=== PATIENT | female | born 1965 ===

== ENCOUNTER 2020-05-06 18:09 | Emergency (ER) | payer OTHER, MEDICAID, SELFPAY ==
[2020-05-06 18:12] VITALS: BP 170/71; PULSE 70; RESP 18; TEMP 36.2; O2SAT 99; BMI 22.0
[2020-05-06 19:01] LABS: RBC Urine 1-5/HPF (0-5/HPF); Squamous Epithelial Cell Urine 1-5 /HPF (0-5/HPF); WBC Urine 0-1/HPF (0-5/HPF)
[2020-05-06 19:02] LABS: Amorphous Sediment Urine 1+; Bacteria Urine Moderate (10-30); Culture Indicated Urine Specimen Cultured
[2020-05-06] MEDS: SODIUM CHLORIDE 0.9% 1,000 ML 1000 ML IV (19:38)
--- NOTE | 2020-05-06 19:40 | DI.CT.S_ITS ---
PROCEDURE: CT KIDNEY URETER BLADDER (KUB) INDICATIONS: severe flank pain, hematuria, left pain TECHNIQUE: Noncontrast 5 mm thick sections acquired from the diaphragms to the symphysis. 5 mm thick coronal and sagittal reformats were then performed. For radiation dose reduction, the following was used: automated exposure control, adjustment of mA and/or kV according to patient size. COMPARISON: [facility], [place], PELVIC COMPLETE, 12/12/2015, 16:31. FINDINGS: Image quality: Excellent. Lung bases: Lung bases are clear. Heart size is normal. Urinary system: Both kidneys are normal in size. Nonobstructing 7 mm right interpolar renal calculus. Cortical calcification within the left interpolar kidney posteriorly measuring 7 mm. Nonobstructing 2 mm calcification within the inferior pole left kidney. No hydronephrosis or perinephric fat stranding. Both ureters appear non-dilated throughout their expected courses. 3 mm diameter nonobstructing distal left ureteral calculus. Urinary bladder is decompressed. Other solid organs: Liver is normal in size. Multiple hepatic cysts are present. Gallbladder is surgically absent . Pancreas is normal in contours. Spleen is normal in size. No adrenal nodules. Peritoneum and bowel: Small hiatal hernia. Unenhanced bowel loops demonstrate normal wall thickness and caliber. No free fluid or air. Appendix not seen. No evidence of appendicitis. Nodes and vessels: No retroperitoneal or mesenteric adenopathy by size criteria. Aorta and inferior vena cava are normal in caliber. Abdominal wall: No ventral hernias. Pelvis: No free pelvic fluid. No inguinal hernias or adenopathy. Exophytic 63 mm diameter mass protrudes posteriorly from the uterus, consistent with a fibroid. Bones: No suspicious bony lesions. No vertebral body compression fractures. IMPRESSION: 1. Nonobstructing distal left ureteral calculus. 2. Nonobstructing bilateral renal calcifications. 3. Small hiatal hernia. 4. Probable uterine fibroid. Confirmation with nonemergent outpatient follow-up ultrasound examination is recommended. 5. Appendix is not seen. No evidence of appendicitis. Dictated by: Tara Campos M.D. on 05/06/2020 at 19:56 Approved by: Tara Campos M.D. on 05/06/2020 at 20:00
[2020-05-06 19:41] LABS: Add Manual Diff / Slide Review NO; Basophils Absolute Auto 0 /uL (0-100); Basophils Percent Auto 0.6 % (0-2); Eosinophils Absolute Auto 100 /uL (0-450); Eosinophils Percent Auto 1.2 % (2-4); Hematocrit 40.8 % (36-46); Hemoglobin 13.5 g/dL (12.0-16.0); Lymphocytes Absolute Auto 2000 /uL (1100-4500); Lymphocytes Percent Auto 25.7 % (25-40); Mean Corpuscular HGB Conc 33.1 % (30-36); Mean Corpuscular Hemoglobin 31.7 PG (26-34); Mean Corpuscular Volume 95.6 fL (80-100); Monocytes Absolute Auto 500 /uL (0-900); Monocytes Percent Auto 6.8 % (3-14); Neutrophils Absolute Auto 5200 /uL (1500-7000); Neutrophils Percent Auto 65.7 % (50-75); Platelet Count 272 X10^3/uL (150-400); Red Blood Cell Count 4.27 X10^6/uL (4.0-5.2); Red Cell Distribution Width 13.7 % (11.6-14.8); White Blood Cell Count 7.9 X10^3/uL (4.5-11.0)
[2020-05-06 19:47] LABS: Prothrombin Time 12.1 SECONDS (10.1-12.7)
[2020-05-06] MEDS: LIDOCAINE 2% IV (19:49)
[2020-05-06] MEDS: SODIUM CHLORIDE 0.9% IV (19:49)
[2020-05-06 19:50] LABS: PTT Partial Thromboplastin Tim 26 SECONDS (26.4-36.2)
[2020-05-06 19:53] LABS: Alanine Aminotransferase 15 IU/L (<35); Albumin 4.7 g/dL (3.5-5.0); Albumin Globulin Ratio 1.4 (1.0-2.8); Alkaline Phosphatase 33 U/L (38-126); Aspartate Aminotransferase 27 IU/L (14-36); BUN Creatinine Ratio 31.1 (6-22); Bilirubin Total 0.4 mg/dL (0.2-1.3); Blood Urea Nitrogen 14 mg/dL (7-17); Calcium 9.9 mg/dL (8.4-10.2); Carbon Dioxide 29 mmol/L (22-32); Chloride 105 mmol/L (98-107); Estimated Glomerular Filt Rate > 60.0 mL/min (>60); Globulin 3.3 g/dL (1.7-4.1); Glucose 120 mg/dL (70-100); HEMOLYSIS 48 (0-50); Lipase 191 U/L (23-300); Sodium 139 mmol/L (137-145)
--- NOTE | 2020-05-06 20:30 | ED_ITS ---
HPI - Abdominal Pain General Chief Complaint: Abdominal Pain Stated Complaint: LEFT SIDE OVERY PAIN AREA FEELING PEE OFTEN Time Seen by Provider: 05/06/20 18:35 Source: patient Mode of arrival: Ambulatory Limitations: no limitations History of Present Illness HPI narrative: 54F nonsmoker with history of ovarian cysts presents with the chief complaint of a day or two of severe left flank pain with radiation into he r groin. She states it came on suddenly and she denies any provocation or palliation. She states it radiates around her flank and into her groin. She states that she has no pain with urination but has been urinating frequently. She denies fever or chills. She is not dizzy nor weak or lightheaded. She states that she has taken little at home to help with her symptoms as she has allergies to the NSAIDs and any opioids. MD complaint: flank pain Onset (ago): day(s) Pain Consistency: intermittent Location: L flank Severity: severe Quality: stabbing and sharp Radiation: L flank Relieving factors: nothing Exacerbating factors: nothing Associated symptoms: nausea Related Data Patient : No Previous Rx's Medication Instructions Recorded azithromycin [Zithromax] 1 - 2 tab OR Q DAY #1 packet 10/18/16 ondansetron 4 mg PO TID-QID PRN #10 tab 05/06/20 tamsulosin [Flomax] 0.4 mg PO DAILY #10 cap 05/06/20 Allergies Allergy/AdvReac Type Severity Reaction Status Date / Time aspirin [ASPIRIN] Allergy Unknown Verified 05/06/20 20:23 cimetidine [CIMETIDINE] Allergy Unknown Verified 05/06/20 20:23 famotidine [FAMOTIDINE] Allergy Unknown Verified 05/06/20 20:23 hydrocodone [HYDROCODONE] Allergy Unknown Verified 05/06/20 20:23 ibuprofen [IBUPROFEN] Allergy Unknown Verified 05/06/20 20:23 peanut [PEANUT] Allergy Unknown Verified 05/06/20 20:23 shellfish derived Allergy Unknown Verified 05/06/20 20:23 IODINE CONTRAST Allergy Unknown Uncoded 10/09/17 12:06 Review of Systems Constitutional Constitutional: Denies chills, Denies fatigue, Denies fever(s), Denies frequent falls, Denies lethargy and Denies weakness Eyes Eyes: Denies change in vision, Denies eye discharge, Denies irritation and Denies loss of vision ENT Ears, Nose, Mouth, and Throat: Denies change in voice, Denies dizziness, Denies neck pain, Denies sore throat and Denies throat swelling Cardiovascular Cardiovascular: Denies chest pain, Denies irregular heart rhythm, Denies lightheadedness, Denies palpitations, Denies dyspnea, Denies dyspnea on exertion and Denies orthopnea Respiratory Respiratory: Denies cough, Denies dyspnea, Denies dyspnea on exertion and Denies wheezing Gastrointestinal Gastrointestinal: Reports abdominal pain, Denies change in bowel habits, Denies diarrhea, Denies nausea and Denies vomiting Genitourinary Genitourinary: Reports flank pain and Reports urinary urgency Genitourinary: Reports flank pain and Reports urinary urgency Musculoskeletal Musculoskeletal: Denies neck pain and Denies numbness Integumentary/Breasts Skin/Breast: Denies pruritus, Denies erythema, Denies rash and Denies wounds Neurologic Neurologic: Denies behavioral changes, Denies confusion, Denies dizziness, De nies frequent falls, Denies loss of vision, Denies numbness and Denies weakness Psychiatric Psychiatric: Denies anxiety, Denies behavioral changes, Denies confusion, Denies depression, Denies homicidal ideation and Denies suicidal ideation Endocrine Endocrine: Denies fatigue, Denies flushing and Denies palpitations Hematologic/Lymphatic Hematologic/Lymphatic: Denies easy bruising Allergic/Immunologic Allergic/Immunologic: Denies urticaria, Denies throat swelling and Denies wheezing Patient History Surgical History (Updated 10/29/17 @ 05:43 by Melva Marcelo MD) Status post cholecystectomy Status post ovarian cystectomy Family History (Updated 01/30/16 @ 00:00 by Melva Marcelo MD) Father Depression Cerebrovascular accident (CVA), unspecified mechanism Social History Smoking Status: Never smoker Smoking Status: Never smoker alcohol intake frequency: 0-2 drinks per day Substance Use Type: does not use Exam Narrative Exam Narrative: GENERAL: [54] year old patient appears stated age. Well- nourished, well-developed patient, in mild distress. HEAD: Atraumatic. Normocephalic. EYES: Pupils equal round and reactive. Extraocular motions intact. No scleral icterus. No injection or drainage. ENT: Nose without bleeding, purulent drainage. Throat without erythema, tonsillar hypertrophy or exudate. Airway patent. NECK: Trachea midline. Non tender CARDIOVASCULAR: Regular rate and rhythm without murmurs, gallops, or rubs. RESPIRATORY: Clear to auscultation. Breath sounds equal bilaterally. No wheezes, rales, or rhonchi. GASTROINTESTINAL: Abdomen soft, non-tender, nondistended. EXTREMITIES: No edema or joint tenderness. BACK: Nontender without deformity or crepitance. No flank tenderness. NEURO: AOx3. SKIN: No rash or erythema of visible areas Initial Vital Signs Initial Vital Signs: Vital Signs Temperature 97.1 F L 05/06/20 18:12 Pulse Rate 70 05/06/20 18:12 Respiratory Rate 18 05/06/20 18:12 Blood Pressure 170/71 H 05/06/20 18:12 Pulse Oximetry 99 05/06/20 18:12 Course Orders Ordered: Discontinued Medications Sodium Chloride (Normal Saline 0.9%) 1,000 mls @ 1,000 mls/hr IV BOLUS ONE Stop: 05/06/20 20:27 Last Infusion: 05/06/20 20:23 Dose: 0 mls/hr Documented by: Admin: 05/06/20 19:38 Dose: 1,000 mls/hr Documented by: RAMAKRISHNA Sodium Chloride (Normal Saline 0.9%) 1,000 mls @ 1,000 mls/hr IV BOLUS ONE Stop: 05/06/20 20:39 Last Admin: 05/06/20 19:49 Dose: Not Given Documented by: RAMAKRISHNA Lidocaine HCl 4.9 ml/ Sodium (Chloride) 54.9 mls @ 329.4 mls/hr IV NOW ONE Stop: 05/06/20 19:42 Last Infusion: 05/06/20 20:23 Dose: 0 mls/hr Documented by: Admin: 05/06/20 19:49 Dose: 329.4 mls/hr Documented by: RAMAKRISHNA Vital Signs Vital signs: Vital Signs - 8 hr 05/06/20 18:12 Temperature 97.1 F L Pulse Rate 70 Respiratory Rate 18 Blood Pressure 170/71 H Pulse Oximetry 99 MDM - Abdominal Pain Lab Data Result diagrams: 05/06/20 19:35 05/06/20 19:35 Labs: Lab Results 05/06/20 05/06/20 05/06/20 Range/Units 18:35 19:35 19:35 WBC 7.9 (4.5-11.0) X10^3/uL RBC 4.27 (4.0-5.2) X10^6/uL Hgb 13.5 (12.0-16.0) g/dL Hct 40.8 (36-46) % MCV 95.6 (80-100) fL MCH 31.7 (26-34) PG MCHC 33.1 (30-36) % RDW 13.7 (11.6-14.8) % Plt Count 272 (150-400) X10^3/uL Neut % (Auto) 65.7 (50-75) % Lymph % (Auto) 25.7 (25-40) % [place] % (Auto) 6.8 (3-14) % Eos % (Auto) 1.2 L (2-4) % Baso % (Auto) 0.6 (0-2) % Neut # (Auto) 5200 (7947-8576) /uL Lymph # (Auto) 2000 (0255-5779) /uL [place] # (Auto) 500 (0-900) /uL Eos # (Auto) 100 (0-450) /uL Baso # (Auto) 0 (0-100) /uL PT 12.1 (10.1-12.7) SECONDS INR 1.0 (0.9-1.3) APTT 26 L (26.4-36.2) SECONDS Sodium (137-145) mmol/L Potassium (3.4-5.1) mmol/L Chloride (98-107) mmol/L Carbon Dioxide (22-32) mmol/L BUN (7-17) mg/dL Creatinine (0.52-1.04) mg/dL Estimated GFR (>60) mL/min BUN/Creatinine Ratio (6-22) Glucose (70-100) mg/dL Calcium (8.4-10.2) mg/dL Total Bilirubin (0.2-1.3) mg/dL AST (14-36) IU/L ALT (<35) IU/L Alkaline Phosphatase (38-126) U/L Total Protein (6.3-8.2) g/dL Albumin (3.5-5.0) g/dL Globulin (1.7-4.1) g/dL Albumin/Globulin Ratio (1.0-2.8) Lipase (23-300) U/L Urine RBC 1-5/hpf (0-5/HPF) Urine WBC 0-1/hpf (0-5/HPF) Ur Squamous Epith Cells 1-5 /hpf (0-5/HPF) Amorphous Sediment 1+ Urine Bacteria Moderate (10-30) H (None) Ur Culture Indicated? Specimen cultured 05/06/20 Range/Units 19:35 WBC (4.5-11.0) X10^3/uL RBC (4.0-5.2) X10^6/uL Hgb (12.0-16.0) g/dL Hct (36-46) % MCV (80-100) fL MCH (26-34) PG MCHC (30-36) % RDW (11.6-14.8) % Plt Count (150-400) X10^3/uL Neut % (Auto) (50-75) % Lymph % (Auto) (25-40) % [place] % (Auto) (3-14) % Eos % (Auto) (2-4) % Baso % (Auto) (0-2) % Neut # (Auto) (2269-8290) /uL Lymph # (Auto) (3712-9335) /uL [place] # (Auto) (0-900) /uL Eos # (Auto) (0-450) /uL Baso # (Auto) (0-100) /uL PT (10.1-12.7) SECONDS INR (0.9-1.3) APTT (26.4-36.2) SECONDS Sodium 139 (137-145) mmol/L Potassium 4.0 (3.4-5.1) mmol/L Chloride 105 (98-107) mmol/L Carbon Dioxide 29 (22-32) mmol/L BUN 14 (7-17) mg/dL Creatinine 0.45 L (0.52-1.04) mg/dL Estimated GFR > 60.0 (>60) mL/min BUN/Creatinine Ratio 31.1 H (6-22) Glucose 120 H (70-100) mg/dL Calcium 9.9 (8.4-10.2) mg/dL Total Bilirubin 0.4 (0.2-1.3) mg/dL AST 27 (14-36) IU/L ALT 15 (<35) IU/L Alkaline Phosphatase 33 L (38-126) U/L Total Protein 8.0 (6.3-8.2) g/dL Albumin 4.7 (3.5-5.0) g/dL Globulin 3.3 (1.7-4.1) g/dL Albumin/Globulin Ratio 1.4 (1.0-2.8) Lipase 191 (23-300) U/L Urine RBC (0-5/HPF) Urine WBC (0-5/HPF) Ur Squamous Epith Cells (0-5/HPF) Amorphous Sediment Urine Bacteria (None) Ur Culture Indicated? Point of care testing: Urine Dip Bedside Urine Glucose Negative Bedside Urine Bilirubin + 1 Bedside Urine Ketone + 15 Urine Specific [place] 1.030 Bedside Urine Occult Blood +/- Bedside Urine pH 6.0 Bedside Urine Protein - Negative Bedside Urine Urobilinogen - Negative Bedside Urine Nitrite - Negative Bedside Urine Leukocytes - Negative Esterase Imaging Data CT scan - abdomen/pelvis: Radiologist's Impression: Chart Viewer Diagnostics DATE TYPE STATUS REF RANGE/AUTHOR Hx 05/06/20 19:40 Tara Campos Kamla Childs 54, [id number] [facility], Main ED 172.72cm 65.771kg BMI: 22.0kg/m? VIP Abdominal Pain Search Chart No Data to Display ONSET 05/06/20 20:46 AmadeoKamla A 54 F 1965 [place] [address] CT Scan Report Signed Patient: Kamla Childs AMR#: [id number] : 1965Acct:[id number] Age/Sex: 54 / FDate of Service: 05/06/20 Loc: ED Accession Number: [id number] Procedure: CT kidney ureter bladder (KUB) Ordering Provider: Marques Viveros D.O. PROCEDURE: CT KIDNEY URETER BLADDER (KUB) INDICATIONS: severe flank pain, hematuria, left pain TECHNIQUE: Noncontrast 5 mm thick sections acquired from the diaphragms to the symphysis. 5 mm thick coronal and sagittal reformats were then performed. For radiation dose reduction, the following was used: automated exposure control, adjustment of mA and/or kV according to patient size. COMPARISON: [facility], [place], PELVIC COMPLETE, 12/12/2015, 16:31. FINDINGS: Image quality: Excellent. Lung bases: Lung bases are clear. Heart size is normal. Urinary system: Both kidneys are normal in size. Nonobstructing 7 mm right in terpolar renal calculus. Cortical calcification within the left interpolar kidney posteriorly measuring 7 mm. Nonobstructing 2 mm calcification within the inferior pole left kidney. No hydronephrosis or perinephric fat stranding. Both ureters appear non-dilated throughout their expected courses. 3 mm diameter nonobstructing distal left ureteral calculus. Urinary bladder is decompressed. Other solid organs: Liver is normal in size. Multiple hepatic cysts are present. Gallbladder is surgically absent . Pancreas is normal in contours. Spleen is normal in size. No adrenal nodules. Peritoneum and bowel: Small hiatal hernia. Unenhanced bowel loops demonstrate normal wall thickness and caliber. No free fluid or air. Appendix not seen. No evidence of appendicitis. Nodes and vessels: No retroperitoneal or mesenteric adenopathy by size criteria. Aorta and inferior vena cava are normal in caliber. Abdominal wall: No ventral hernias. Pelvis: No free pelvic fluid. No inguinal hernias or adenopathy. Exophytic 63 mm diameter mass protrudes posteriorly from the uterus, consistent with a fibroid. Bones: No suspicious bony lesions. No vertebral body compression fractures. IMPRESSION: 1. Nonobstructing distal left ureteral calculus. 2. Nonobstructing bilateral renal calcifications. 3. Small hiatal hernia. 4. Probable uterine fibroid. Confirmation with nonemergent outpatient follow-up ultrasound examination is recommended. 5. Appendix is not seen. No evidence of appendicitis. Dictated by: Tara Campos M.D. on 05/06/2020 at 19:56 Approved by: Tara Campos M.D. on 05/06/2020 at 20:00 Discharge Plan Departure Patient Disposition: Home Clinical Impression: Calculus of kidney Discharge Date/Time: 05/06/20 21:12 Instructions: DI for Kidney Stones Activity Restrictions/Additional Instructions: *You have been diagnosed with [small kidney stone, very likely to pass on its own] *What to do: *Take medications as directed *Follow up with your primary care provider in 2-3 days, call for an appointment. Let them know you were seen in the Emergency Department and that we ask that you be seen in follow up. You may also follow up with urology for follow up, I have included contact info for Dr. Gonzalez. *Return to ER if you should have any new, worsening or concerning symptoms, such as [increasing pain, fever, chills, persistent vomiting or other bothersome symptoms] Prescriptions: New tamsulosin [Flomax] 0.4 mg capsule 0.4 mg PO DAILY Qty: 10 RF: 0 ondansetron 4 mg tablet,disintegrating 4 mg PO TID-QID PRN (Reason: nausea and vomiting) Qty: 10 RF: 0 No Action azithromycin [Zithromax] 250 MG tablet 1 - 2 tab OR Q DAY Qty: 1 RF: 0 Referrals: Sanjuanita Gonzalez MD [Physician] -
[2020-05-06 20:46] VITALS: BP 154/78; PULSE 81; RESP 18; O2SAT 99
== END 2020-05-06 21:12 | disposition home or self-care (01) ==
PROVIDERS: Emergency Provider Emergency Medicine
DX: N20.0 Calculus of kidney (principal); R11.0 Nausea; R31.9 Hematuria, unspecified
CPT/HCPCS: 36415; 74176; 80053; 81003; 81015; 83690; 85025; 85610; 85730; 87086; 96365; 99284

== ENCOUNTER → 2020-07-07 10:27 | Outpatient (CLI) | payer OTHER, MEDICAID, SELFPAY ==
--- NOTE | 2020-07-07 | DI.US.S_ITS ---
PROCEDURE: US PELVIC COMPLETE INDICATIONS: F/U Uterine fibriod seen on CT 05/06/20 TECHNIQUE: Real-time scanning was performed of the pelvic organs, with image documentation. Additional endovaginal scanning was necessary due to incomplete visualization of the adnexal and endometrial structures by transabdominal scanning. COMPARISON: [facility], CT, CT KIDNEY URETER BLADDER (KUB), 05/06/2020, 19:44. [facility], [place], PELVIC COMPLETE, 12/12/2015, 16:31. FINDINGS: Transabdominal scanning: Limited scanning through the kidneys shows no hydronephrosis. No pathologic free abdominal or pelvic fluid. Endovaginal scanning: Uterus: Uterus is top-normal in size at 9.8 x 5.6 x 6.0 cm. The endometrium measures 10 mm in combined thickness. Uterine fibroid with pedunculated appearance involving the midline posterior region measuring 6.7 x 5.8 x 5.4 cm. Ovaries: Right ovary measures 3.2 x 2.0 x 1.3 cm. Left ovary measures 3.5 x 1.9 x 2.1 cm. Doppler interrogation demonstrates normal waveforms in both ovaries. IMPRESSION: Presumed large posterior uterine fibroid. Surveillance with ultrasound to document long-term stability could be performed as clinically indicated. Dictated by: Claudy Man M.D. on 07/07/2020 at 12:23 Approved by: Claudy Man M.D. on 07/07/2020 at 12:26
== END ==
PROVIDERS: PCP Family Medicine; Referring Provider Physician Assistant; Visit Provider Physician Assistant
DX: R93.89 Abnormal findings on diagnostic imaging of other specified body structures (principal); D25.9 Leiomyoma of uterus, unspecified; N20.1 Calculus of ureter; Z84.1 Family history of disorders of kidney and ureter
CPT/HCPCS: 76830; 76856; 81002; 99214

== ENCOUNTER → 2020-07-18 10:27 | Outpatient (CLI) | payer OTHER, MEDICAID, SELFPAY ==
--- NOTE | 2020-07-18 10:28 | DI.RAD.S_ITS ---
PROCEDURE: XR KUB INDICATIONS: Kidney stone TECHNIQUE: One view of the abdomen acquired. COMPARISON: [facility], CT, CT KIDNEY URETER BLADDER (KUB), 05/06/2020, 19:44. FINDINGS: Surgical changes and devices: Surgical clips right upper quadrant and right mid abdomen. Bowel: Bowel gas pattern is normal. Soft tissues: No new suspicious abdominal calcifications. Visualized solid organ contours appear normal in size. A calcification within the mid collecting system of the right kidney is partially overlapping the medial border of cholecystectomy clips at the right upper quadrant. It can be seen, however and was easily visualized by CT scanning 05/06/20. A minute calculus within the lower 3rd collecting system of the left kidney cannot be seen. A distal left ureteral stone cannot be clearly visualized at the pelvis.. Bones: No suspicious bony lesions. IMPRESSION: The right upper quadrant nonobstructive right renal collecting system calculus is partially obscured by right upper quadrant cholecystectomy clips but can be seen. The 2 left-sided urinary tract stones cannot be visualized by current plain film imaging. Dictated by: Trevor Braga M.D. on 07/18/2020 at 11:13 Approved by: Trevor Braga M.D. on 07/18/2020 at 11:17
[2020-07-18 12:03] LABS: Calcium 9.4 mg/dL (8.4-10.2); Uric Acid 2.9 mg/dL (2.5-6.2)
[2020-07-19 07:36] LABS: Parathyroid Hormone Int 58 pg/mL (15-65)
== END ==
PROVIDERS: PCP Family Medicine; Referring Provider Specialist; Visit Provider Specialist
DX: N20.0 Calculus of kidney (principal)
CPT/HCPCS: 36415; 74018; 82310; 83970; 84550

== ENCOUNTER → 2020-09-16 10:45 | Outpatient (CLI) | payer OTHER, MEDICAID, SELFPAY ==
[2020-09-16] MEDS: COVID-19 VACC #1, MRNA(MOD) 100 MCG/0.5 ML VIAL IM (10:52)
== END ==
PROVIDERS: PCP Family Medicine; Visit Provider Internal Medicine
DX: Z23 Encounter for immunization (principal)
CPT/HCPCS: 0011A; 91301

== ENCOUNTER 2020-10-07 06:09 | Day surgery (SDC) | payer OTHER, MEDICAID, SELFPAY ==
[2020-10-07] VITALS (8 sets, daily range): BP systolic 119–136; BP diastolic 76–87; PULSE 69–104; RESP 8–16; TEMP 36.2–36.9; O2SAT 97–99; BMI 22.8
[2020-10-07] MEDS: LACTATED RINGERS 1,000 ML 42 ML IV (06:54)
[2020-10-07 07:11] LABS: COVID19 -Nasal RAPID Negative (Negative)
[2020-10-07] MEDS: SCOPOLAMINE 1 PATCH TOP (07:24)
[2020-10-07] MEDS: ACETAMINOPHEN 325 MG TABLET 975 MG PO (07:25)
--- NOTE | 2020-10-07 07:35 | PM.HP.1 ---
History of Present Illness History of Present Illness Date Patient Seen: 10/07/20 Time Patient Seen: 07:35 Chief complaint: SDC Narrative: Mildly is a 54-year-old white female presenting today for scheduled right lithotripsy for 6 mm right upper pole renal calculus. She has diagnosis of bilateral nephrolithiasis about 2019. She recently passed a 3 mm calculus. Metabolic stone risk evaluation identified suboptimal urine production and hypocitraturia as underlying risk factors for stone formation. Her sister also has a history of nephrolithiasis. Patient History Medical History Bilateral nephrolithiasis (~2019) Chicken pox (~1974) Family history of nephrolithiasis Fibroids (~2019) Vertigo (~2012) Surgical History Anesthesia History of (~04/21/07) History of oral surgery History of removal of skin mole Status post cholecystectomy (~2011) Status post ovarian cystectomy Family & Social History Family History Father Depression Cerebrovascular accident (CVA), unspecified mechanism Kidney stones Mother Kidney stones Social History: household members spouse Tobacco & Substance use: Smoking Status Never smoker alcohol intake current alcohol intake frequency a few times a week Substance Use Type does not use Meds Home Medications and Allergies Home Medications Medication Instructions Recorded Confirmed Type cholecalciferol (vitamin D3) 125 125 mcg PO DAILY 06/29/20 10/07/20 History mcg (5,000 unit) capsule potassium citrate 10 mEq (1,080 10 meq PO TID #270 tab 09/05/20 10/07/20 Rx mg) tablet,extended release Allergies Allergy/AdvReac Type Severity Reaction Status Date / Time cimetidine [CIMETIDINE] Allergy Intermediate Gastrointestinal Verified 10/07/20 06:57 Upset diphenhydramine Allergy Intermediate Swelling Verified 10/07/20 06:57 [From Benadryl] of Lip/Tongue/Throat famotidine [FAMOTIDINE] Allergy Intermediate Verified 10/07/20 06:57 hydrocodone [HYDROCODONE] Allergy Intermediate Hives Verified 10/07/20 06:57 ibuprofen [IBUPROFEN] Allergy Intermediate Hives Verified 10/07/20 06:57 IODINE CONTRAST Allergy Unknown Uncoded 10/03/20 13:14 Exam Vital Signs (past 8 hours): - 10/07/20 07:03 Temperature 98.5 F Pulse Rate 83 Respiratory Rate 14 Blood Pressure 125/87 Pulse Oximetry 98 Oxygen Delivery Method Room Air Narrative Exam Narrative: She is a well-developed and nourished middle-aged female in no acute distress. Head/neck-sclera clear and pupils are equal round bilaterally. Chest-clear, equal, unlabored expansion bilaterally. Heart-regular rhythm in regular rate. No abnormal heart tones appreciated. Objective Labs Labs: Laboratory Results - last 24 hr 10/07/20 06:39 SARS-CoV-2 (PCR) Negative Assessment & Plan Assessment & Plan narrative: Assessment: 1. 6 mm right upper pole renal calculus. 2. History recurrent nephrolithiasis. Plan: 1. Discussion informed consent obtained today for RIGHT EXTRACORPOREAL SHOCKWAVE LITHOTRIPSY..
--- NOTE | 2020-10-07 07:38 | PM.PREOP ---
Pre-operative Note Interval Note History & Physical reviewed/Exam performed by Physician: Yes Changes to H&P: No
--- NOTE | 2020-10-07 08:04 | SUR.OPER ---
Supine on lithotriptor bed, head on pillow, arms on gel pads at side, legs uncrossed, gel pad to back of knees and heels, lower legs on padded triangle.
--- NOTE | 2020-10-07 08:20 | PM.OP.1 ---
Operative Date/Time/Diagnoses Date of procedure: 10/07/20 Time of procedure: 08:20 Pre-op diagnosis: 1. 6 mm right renal calculus. 2. History recurrent calcium nephrolithiasis. Post-op diagnosis: same Procedure & Clinicians Procedure: Right extracorporeal shockwave lithotripsy (maximal power level 6.5 x 1000 shocks) Same procedure as scheduled: Yes Indications: 1. 6 mm right renal calculus. 2. History recurrent nephrolithiasis. Surgeon: Sanjuanita Gonzalez Click Yes if Unassisted: Yes Anesthesia Type: General Operative Notes Findings: 6 mm index calculus located expected position compared to preoperative imaging. Closure Type: not applicable Specimen(s): none sent Estimated Blood Loss (mL): 0 Blood products transfused: none Procedure in detail: Patient was positioned supine was administered general anesthesia. The above-described stone was then localized xy and Z plane. Lithotripsy was then commenced at minimal power level for 200 shocks. A 2 minutes pause was then conducted. Lithotripsy was then resumed and the power level was gradually increased to maximal of 6.5 the stone and its fragments were really localize numerous times throughout the case and adjustments made as indicated. At 1000 shocks there was excellent radiographic evidence of stone comminution. Treatment was halted. Patient was then awakened, transferred to [place], and transferred to PACU. Complications: none Post-operative Condition: stable Disposition: PACU Plan for aftercare: Discharge home
--- NOTE | 2020-10-07 08:47 | SUR.PHASEI ---
Pt arrived to PACU with patent airway, awoke w/o difficulty and turned to left side per Dr. Gonzalez's instructions.
--- NOTE | 2020-10-07 08:50 | SUR.PHASEI ---
Verified with Dr. Gonzalez about no lasix order.
--- NOTE | 2020-10-07 11:32 | SUR.PHASEII ---
Late entry: Pt up to void, steady when up, urine stained, stones sent to lab. Pt ready to go, called, d/c instructions discussed aware of meds at pharmacy. Pt left when ready and in stable condition.
[2020-10-17 12:54] LABS: Stone Analysis Source NOT PROVIDED
== END 2020-10-07 10:10 | disposition home or self-care (01) ==
PROVIDERS: PCP Family Medicine; Referring Provider Family Medicine; Visit Provider Specialist
PROC: (CPT 50590; principal; 2020-10-07 07:45)
DX: N20.0 Calculus of kidney (principal)
CPT/HCPCS: 50590; 82365; 87635; J1100; J2250; J2405; J2704

== ENCOUNTER → 2020-10-10 10:43 | Outpatient (CLI) | payer OTHER, MEDICAID, SELFPAY ==
[2020-10-17 13:04] LABS: Stone Analysis Source NOT PROVIDED
== END ==
PROVIDERS: PCP Family Medicine; Referring Provider Specialist; Visit Provider Specialist
DX: N20.0 Calculus of kidney (principal)
CPT/HCPCS: 82365

== ENCOUNTER → 2020-10-14 11:10 | Outpatient (CLI) | payer OTHER, MEDICAID, SELFPAY ==
[2020-10-14] MEDS: COVID-19 VACC #2, MRNA(MOD) 100 MCG/0.5 ML VIAL IM (11:20)
== END ==
PROVIDERS: PCP Family Medicine; Visit Provider Internal Medicine
DX: Z23 Encounter for immunization (principal)
CPT/HCPCS: 0012A; 91301

== ENCOUNTER → 2020-11-18 10:16 | Outpatient (CLI) | payer OTHER, MEDICAID, SELFPAY ==
--- NOTE | 2020-11-18 10:17 | DI.RAD.S_ITS ---
PROCEDURE: XR KUB INDICATIONS: Nephrolithiasis TECHNIQUE: One view of the abdomen acquired. COMPARISON: [facility], CR, XR KUB, 07/18/2020, 10:46. FINDINGS: Surgical changes and devices: Cholecystectomy clips. Bowel: Bowel gas pattern is normal. Soft tissues: 2 right-sided renal stones which project immediately superior to the cholecystectomy clips are stable in appearance compared July 18, 2020. Visualized solid organ contours appear normal in size. Bones: No suspicious bony lesions. IMPRESSION: 2 right-sided renal stones stable in size and position compared to July 18, 2020. Dictated by: Denisse Uriostegui MD, PhD on 11/18/2020 at 17:06 Approved by: Denisse Uriostegui MD, PhD on 11/18/2020 at 17:07
[2020-11-18 12:14] LABS: Calcium 9.5 mg/dL (8.4-10.2)
[2020-11-19 06:29] LABS: Parathyroid Hormone Int 67 pg/mL (15-65)
== END ==
PROVIDERS: PCP Family Medicine; Referring Provider Specialist; Visit Provider Specialist
DX: Z84.1 Family history of disorders of kidney and ureter (principal); N20.0 Calculus of kidney
CPT/HCPCS: 36415; 74018; 82310; 83970; 84550

== ENCOUNTER → 2022-08-13 14:22 | Outpatient (CLI) | payer OTHER, MEDICAID, SELFPAY ==
--- NOTE | 2022-08-13 14:26 | DI.US.S_ITS ---
PROCEDURE: US SOFT TISSUE HEAD AND NECK INDICATIONS: throat discomfort, possible swelling @ thyroid TECHNIQUE: Real-time scanning was performed of the neck region of interest, with image documentation. COMPARISON: None. FINDINGS: Right left lobe of the thyroid measures 4.1 x 0.9 x 1.3 cm in 3.3 x 1.2 x 1.2 cm respectively. No focal nodules. IMPRESSION: Unremarkable ultrasound of the thyroid Approved by: Terell Vilchis M.D. on 08/13/2022 at 17:26
[2022-08-13 14:39] LABS: Add Manual Diff / Slide Review NO; Basophils Absolute Auto 100 /uL (0-100); Eosinophils Absolute Auto 100 /uL (0-450); Eosinophils Percent Auto 1.3 % (2-4); Hematocrit 40.6 % (36-46); Hemoglobin 13.7 g/dL (12.0-16.0); Lymphocytes Absolute Auto 2000 /uL (1100-4500); Lymphocytes Percent Auto 34.9 % (25-40); Mean Corpuscular HGB Conc 33.8 % (30-36); Mean Corpuscular Hemoglobin 31.6 PG (26-34); Mean Corpuscular Volume 93.5 fL (80-100); Monocytes Absolute Auto 400 /uL (0-900); Monocytes Percent Auto 7.6 % (3-14); Neutrophils Absolute Auto 3200 /uL (1500-7000); Neutrophils Percent Auto 55.2 % (50-75); Platelet Count 277 X10^3/uL (150-400); Red Blood Cell Count 4.34 X10^6/uL (4.0-5.2); Red Cell Distribution Width 13.4 % (11.6-14.8); White Blood Cell Count 5.7 X10^3/uL (4.5-11.0)
[2022-08-13 15:15] LABS: Alanine Aminotransferase 20 IU/L (<35); Albumin 4.5 g/dL (3.5-5.0); Albumin Globulin Ratio 1.4 (1.0-2.8); Alkaline Phosphatase 41 U/L (38-126); Aspartate Aminotransferase 27 IU/L (14-36); BUN Creatinine Ratio 33.3 (6-22); Bilirubin Total 0.3 mg/dL (0.2-1.3); Blood Urea Nitrogen 16 mg/dL (7-17); Calcium 9.6 mg/dL (8.4-10.2); Carbon Dioxide 29 mmol/L (22-32); Chloride 101 mmol/L (98-107); Estimated Glomerular Filt Rate > 60 mL/min (>60); Globulin 3.3 g/dL (1.7-4.1); Glucose 97 mg/dL (70-100); HEMOLYSIS 38 (0-50); Potassium 3.8 mmol/L (3.4-5.1); Sodium 139 mmol/L (137-145); Total Protein 7.8 g/dL (6.3-8.2)
[2022-08-13 15:32] LABS: Free T4, Direct Thyroxine 1.11 ng/dL (0.78-2.19)
[2022-08-13 15:46] LABS: Thyroid Stimulating Hormone 1.69 uIU/mL (0.47-4.68)
[2022-08-13 16:31] LABS: Vitamin D 25 Hydroxy (D3) 45.3 ng/mL (30.0-100.0)
[2022-08-16 07:28] LABS: Parathyroid Hormone, Intact 38 pg/mL (15-65)
== END ==
PROVIDERS: PCP Physician Assistant; Referring Provider Physician Assistant; Visit Provider Physician Assistant
DX: R07.0 Pain in throat (principal); Z86.39 Personal history of other endocrine, nutritional and metabolic disease
CPT/HCPCS: 36415; 76536; 80053; 82306; 82310; 83970; 84439; 84443; 85025

== ENCOUNTER → 2022-12-25 14:56 | Outpatient (CLI) | payer OTHER, SELFPAY | PROVIDERS: PCP Physician Assistant; Visit Provider Physician Assistant | DX: R07.0 Pain in throat (principal) | CPT/HCPCS: 87070 ==

== ENCOUNTER → 2023-06-11 09:14 | Outpatient (CLI) | payer OTHER, SELFPAY ==
[2023-06-11 19:30] LABS: Alanine Aminotransferase 19 IU/L (<35); Albumin 4.1 g/dL (3.5-5.0); Albumin Globulin Ratio 1.3 (1.0-2.8); Alkaline Phosphatase 55 U/L (38-126); Aspartate Aminotransferase 25 IU/L (14-36); Bilirubin Total 0.5 mg/dL (0.2-1.3); Blood Urea Nitrogen 9 mg/dL (7-17); Calcium 9.6 mg/dL (8.4-10.2); Carbon Dioxide 26 mmol/L (22-32); Chloride 104 mmol/L (98-107); Cholesterol 238 mg/dL (140-199); Estimated Glomerular Filt Rate > 60 mL/min (>60); Globulin 3.1 g/dL (1.7-4.1); Glucose 98 mg/dL (70-100); HDL Cholesterol 61 mg/dL (40-60); HEMOLYSIS < 15 (0-50); LDL Cholesterol Calculated 155 mg/dL (<100); Potassium 4.5 mmol/L (3.4-5.1); Sodium 136 mmol/L (137-145); Total Protein 7.2 g/dL (6.3-8.2); Triglycerides 108 mg/dL (35-150)
== END ==
PROVIDERS: PCP Physician Assistant; Visit Provider Physician Assistant
DX: Z13.6 Encounter for screening for cardiovascular disorders (principal); R63.5 Abnormal weight gain
CPT/HCPCS: 80053; 80061; 84443

== ENCOUNTER → 2025-01-11 14:55 | Outpatient (CLI) | payer OTHER, SELFPAY | PROVIDERS: PCP Physician Assistant; Visit Provider Urology | DX: N20.0 Calculus of kidney (principal); R39.9 Unspecified symptoms and signs involving the genitourinary system; Z87.442 Personal history of urinary calculi | CPT/HCPCS: 81002; 82365; 99213 ==